=== PATIENT | male | born 1990 | race African-American/Black ===

== ENCOUNTER 2019-11-13 14:08 | Emergency (ER) | payer MEDICAID ==
[~2019-11-13] VITALS: Ht 180.3 cm; Wt 90.0 kg
[2019-11-13 14:22] VITALS: BP 132/86
== END 2019-11-13 17:28 | disposition left against medical advice (07) ==
LOC: ER 14:28
DX: T42.4X1A Poisoning by benzodiazepines, accidental (unintentional), initial encounter (principal); G92 Toxic encephalopathy; F31.9 Bipolar disorder, unspecified; Y92.488 Other paved roadways as the place of occurrence of the external cause
CPT/HCPCS: 99283